=== PATIENT | female | born 1970 | race Caucasian/White ===

== ENCOUNTER 2019-11-20 08:37 | Emergency (ER) | payer OTHER ==
[2019-11-20] MEDS ORDERED: HYDROcodone/ACETAMINOPHEN 5-325 MG TAB PO ONE (10:29)
--- NOTE | 2019-11-20 10:31 | Emergency Department Report ---
HPI - General Chief Complaint: Fall Time Seen by Provider: 11/20/19 10:23 - HPI HPI: Room 19 The patient is a 49-year-old female present with a chief complaint of headache after fall. The patient states this morning at 06: 00 she slipped in the shower falling striking the right occipital region of her head. Patient denies loss of consciousness but states she felt lightheaded and continues to have a headache which she gives a score of 8/10. Patient denies nausea or vomiting. ED Past Medical Hx - Past Medical History Previous Medical History?: No - Surgical History Past Surgical History?: Yes Additional Surgical History: fibroid polyps removed - Family History Family history: no significant - Social History Smoking Status: Never Smoker Substance Use Type: None (Denies illicit drug use) - Medications Home Medications: Home Medications Medication Instructions Recorded Confirmed Last Taken Type HYDROcodone/APAP 5-325 [[place] 1 - 2 each PO Q6HR PRN #5 tablet 11/20/19 Unknown Rx 5/325] Ibuprofen [Motrin 800 MG tab] 800 mg PO Q8HR PRN #20 tablet 11/20/19 Unknown Rx ED Review of Systems ROS: Stated complaint: FELL IN TUB/HIT HEAD Other details as noted in HPI Constitutional: no symptoms reported Respiratory: no symptoms reported Endocrine: no symptoms reported Gastrointestinal: denies: nausea, vomiting Musculoskeletal: other (Neck pain) Neurological: headache Physical Exam - Physical Exam Vital Signs: Vital Signs 11/20/19 08:38 Temperature 98.3 F Pulse Rate 83 Respiratory 16 Rate Blood Pressure 110/79 O2 Sat by Pulse 100 Oximetry Physical Exam: GENERAL: The patient is well-developed well-nourished female sitting on stretcher not appearing to be in acute distress. [] HEENT: Normocephalic. Right occipital tenderness. No laceration seen. Extraocular motions are intact. Patient has moist mucous membranes. NECK: Upper cervical midline tenderness. No step-offs CHEST/LUNGS: Clear to auscultation. There is no respiratory distress noted. HEART/CARDIOVASCULAR: Regular. There is no tachycardia. There is no gallop rub or murmur. SKIN: There is no rash. There are no lacerations. There is no diaphoresis. NEURO: The patient is awake, alert, and oriented. The patient is cooperative. The patient has no focal neurologic deficits. The patient has normal speech. Cranial nerves II through XII grossly intact MUSCULOSKELETAL: There is tenderness to palpation of the upper cervical spine ED Course Vital Signs 11/20/19 08:38 Temperature 98.3 F Pulse Rate 83 Respiratory 16 Rate Blood Pressure 110/79 O2 Sat by Pulse 100 Oximetry ED Medical Decision Making - Radiology Data Radiology results: report reviewed (CT head, CT cervical), image reviewed (CT head, CT cervical spine) [facility] [address] [place] [address] Cat Scan Report Signed Patient: DELVIN SHEPPARD MR#: [id number] : 1970 Acct:[id number] Age/Sex: 49 / F ADM Date: 11/20/19 Loc: ED Attending Dr: Ordering Physician: SLADE TSAI MD Date of Service: 11/20/19 Procedure(s): CT head/brain wo con Accession Number(s): [id number] cc: SLADE TSAI MD CT HEAD WITHOUT CONTRAST INDICATION / CLINICAL INFORMATION: Right occipital headache after fall. TECHNIQUE: All CT scans at this location are performed using CT dose reduction for ALARA by means of automated exposure control. COMPARISON: Head CT 04/28/2016. FINDINGS: HEMORRHAGE: No evidence of intracranial hemorrhage or extra-axial fluid collection. EXTRA-AXIAL SPACES: Cortical sulci, sylvian fissures and basilar cisterns have an unremarkable appearance. VENTRICULAR SYSTEM: The ventricular system is of normal size and configuration. CEREBRAL PARENCHYMA: No areas of abnormal brain parenchymal attenuation are identified. There is no indication of recent infarction. MIDLINE SHIFT OR HERNIATION: There is no mass effect. CEREBELLUM / BRAINSTEM: Brainstem and cerebellum have an unremarkable appearance. MIDLINE STRUCTURES:No abnormalities of the pituitary gland or pineal region are identified. INTRACRANIAL VESSELS:No abnormalities are identified on this noncontrast head CT. ORBITS: visualized portions of the orbits have an unremarkable appearance. SOFT TISSUES of HEAD: No significant abnormality. CALVARIUM: Evaluation of bone windows reveals no abnormalities. PARANASAL SINUSES / MASTOID AIR CELLS: Paranasal sinuses are free from inflammatory mucosal disease. Mastoid air cells are normally pneumatized. ADDITIONAL FINDINGS: There is ossification of the falx in the anterior interhemispheric fissure. This is unchanged since prior study. IMPRESSION: 1. No acute intracranial abnormality. No significant interval change. Signer Name: Edwin Stanley MD Signed: 11/20/2019 12:40 PM Workstation Name: [id number] Transcribed By: Dictated By: Edwin Stanley MD Electronically Authenticated By: Edwin Stanley MD Signed Date/Time: 11/20/19 1240 DD/ 1236 TD/TT: [facility] [address] [place] [address] Cat Scan Report Signed Patient: DELVIN SHEPPARD MR#: [id number] : 1970 Acct:[id number] Age/Sex: 49 / F ADM Date: 11/20/19 Loc: ED Attending Dr: Ordering Physician: SLADE TSAI MD Date of Service: 11/20/19 Procedure(s): CT cervical spine wo con Accession Number(s): [id number] cc: SLADE TSAI MD CT cervical spine wo con INDICATION / CLINICAL INFORMATION: 49 years Female; Neck pain after fall. TECHNIQUE: Axial CT images of the cervical spine were obtained. Sagittal and coronal reformatted images were produced. All CT scans at this location are performed using CT dose reduction for ALARA by means of automated exposure control. COMPARISON: None available. FINDINGS: POST- SURGICAL CHANGES: None. ALIGNMENT: Normal cervical lordosis seen without significant scoliosis. VERTEBRAE: No signs of fracture. Vertebral bodies are grossly normal in height throughout. No significant facet joint disease or osseous foraminal narrowing appreciated. INTRAVERTEBRAL DISCS:Disc spaces are fairly well-maintained throughout without significant canal stenosis. PARASPINAL SOFT TISSUES: No significant abnormality. ADDITIONAL FINDINGS: None. IMPRESSION: 1. No signs of acute bony trauma to the cervical spine. Signer Name: Kaleb Ny MD, III Signed: 11/20/2019 1:35 PM Workstation Name: [id number] Transcribed By: HR Dictated By: Kaleb Ny MD Electronically Authenticated By: Kaleb Ny MD Signed Date/Time: 11/20/19 1335 DD/ 1333 TD/TT: - Differential Diagnosis Close head injury, ICH, cerebral contusion, cervical strain, cervical fract Critical care attestation.: If time is entered above; I have spent that time in minutes in the direct care of this critically ill patient, excluding procedure time. ED Disposition Clinical Impression: Closed head injury, Cervical strain, acute Disposition: DC-01 TO HOME OR SELFCARE Is pt being admited?: No Does the pt Need Aspirin: No Condition: Stable Instructions: Muscle Strain (ED), Minor Head Injury (ED) Additional Instructions: Return to the emergency department should you develop worsening symptoms, inability to tolerate food or liquids, high fever or any other concerns Prescriptions: Ibuprofen [Motrin 800 MG tab] 800 mg PO Q8HR PRN #20 tablet PRN Reason: Pain, Moderate (4-6) HYDROcodone/APAP 5-325 [[place] 5/325] 1 - 2 each PO Q6HR PRN #5 tablet PRN Reason: Pain Referrals: PRIMARY CARE, [Primary Care Provider] - 3-5 Days Time of Disposition: 13:55
[2019-11-20 11:43] VITALS: BP 103/76
--- NOTE | 2019-11-20 12:44 | Cat Scan Report ---
CT HEAD WITHOUT CONTRAST INDICATION / CLINICAL INFORMATION: Right occipital headache after fall. TECHNIQUE: All CT scans at this location are performed using CT dose reduction for ALARA by means of automated e xposure control. COMPARISON: Head CT 04/28/2016. FINDINGS: HEMORRHAGE: No evidence of intracranial hemorrhage or extra-axial fluid collection. EXTRA-AXIAL SPACES: Cortical sulci, sylvian fissures and basilar cisterns have an unremarkable appear ance. VENTRICULAR SYSTEM: The ventricular system is of normal size and configuration. CEREBRAL PARENCHYMA: No areas of abnormal brain parenchymal attenuation are identified. There is no i ndication of recent infarction. MIDLINE SHIFT OR HERNIATION: There is no mass effect. CEREBELLUM / BRAINSTEM: Brainstem and cerebellum have an unremarkable appearance. MIDLINE STRUCTURES:No abnormalities of the pituitary gland or pineal region are identified. INTRACRANIAL VESSELS:No abnormalities are identified on this noncontrast head CT. ORBITS: visualized portions of the orbits have an unremarkable appearance. SOFT TISSUES of HEAD: No significant abnormality. CALVARIUM: Evaluation of bone windows reveals no abnormalities. PARANASAL SINUSES / MASTOID AIR CELLS: Paranasal sinuses are free from inflammatory mucosal disease. Mastoid air cells are normally pneumatized. ADDITIONAL FINDINGS: There is ossification of the falx in the anterior interhemispheric fissure. This is unchanged since prior study. IMPRESSION: 1. No acute intracranial abnormality. No significant interval change. Signer Name: Edwin Stanley MD Signed: 11/20/2019 12:40 PM Workstation Name: [id number]
--- NOTE | 2019-11-20 13:39 | Cat Scan Report ---
CT cervical spine wo con INDICATION / CLINICAL INFORMATION: 49 years Female; Neck pain after fall. TECHNIQUE: Axial CT images of the cervical spine were obtained. Sagittal and coronal reformatted images were pr oduced. All CT scans at this location are performed using CT dose reduction for ALARA by means of aut omated exposure control. COMPARISON: None available. FINDINGS: POST-SURGICAL CHANGES: None. ALIGNMENT: Normal cervical lordosis seen without significant scoliosis. VERTEBRAE: No signs of fracture. Vertebral bodies are grossly normal in height throughout. No signif icant facet joint disease or osseous foraminal narrowing appreciated. INTRAVERTEBRAL DISCS:Disc spaces are fairly well-maintained throughout without significant canal sten osis. PARASPINAL SOFT TISSUES: No significant abnormality. ADDITIONAL FINDINGS: None. IMPRESSION: 1. No signs of acute bony trauma to the cervical spine. Signer Name: Kaleb Ny MD, III Signed: 11/20/2019 1:35 PM Workstation Name: [id number]
== END 2019-11-20 14:09 | disposition home or self-care (01) ==
LOC: ED 08:37
DX: S09.90XA Unspecified injury of head, initial encounter (principal); S16.1XXA Strain of muscle, fascia and tendon at neck level, initial encounter; Z98.890 Other specified postprocedural states; Z79.1 Long term (current) use of non-steroidal anti-inflammatories (NSAID); Z79.899 Other long term (current) drug therapy; W18.2XXA Fall in (into) shower or empty bathtub, initial encounter; Y93.89 Activity, other specified; Y92.89 Other specified places as the place of occurrence of the external cause; Y99.8 Other external cause status
CPT/HCPCS: 70450; 72125

== ENCOUNTER 2020-03-22 12:24 | Emergency (ER) | payer OTHER ==
[2020-03-22 12:42] VITALS: BP 128/81
--- NOTE | 2020-03-22 13:43 | Emergency Department Report ---
ED ENT HPI - General Chief complaint: Earache Stated complaint: THROAT AND EAR PAIN Time Seen by Provider: 03/22/20 13:02 Source: patient Mode of arrival: Ambulatory Limitations: No Limitations - History of Present Illness Initial comments: 49 yr old female with no significant pmhx presents to ED c/o Sore throat and ear pain. Patient states she has had sore throat off an on since january. She states she treated herself at home. She states pain got better but returned again about 1 week ago. She reports associated bilateral ear pain x 1 week and productive cough with blood tinged sputum. She denies any fever, chills, sob, wheezing, chest pain or any other symptoms. She denies tobacco use. MD complaint: sore throat, ear pain -: week(s) - Related Data Previous Rx's Medication Instructions Recorded Last Taken Type HYDROcodone/APAP 5-325 [[place] 1 - 2 each PO Q6HR PRN #5 tablet 11/20/19 Unknown Rx 5/325] Ibuprofen [Motrin 800 MG tab] 800 mg PO Q8HR PRN #20 tablet 11/20/19 Unknown Rx Amoxicillin [Trimox CAP] 500 mg PO Q8H #30 capsule 03/22/20 Unknown Rx Fexofenadine HCl [Paulien Allergy] 60 mg PO BID #20 tablet 03/22/20 Unknown Rx methylPREDNISolone [Medrol 4MG 4 mg PO DAILY #1 tab.ds.pk 03/22/20 Unknown Rx DOSEPAK (21 tabs)] Allergies Allergy/AdvReac Type Severity Reaction Status Date / Time cat dander Allergy Swelling Verified 03/22/20 12:42 ED Dental HPI - General Chief complaint: Earache Stated complaint: THROAT AND EAR PAIN Time Seen by Provider: 03/22/20 13:02 Source: patient Mode of arrival: Ambulatory Limitations: No Limitations - Related Data Previous Rx's Medication Instructions Recorded Last Taken Type HYDROcodone/APAP 5-325 [[place] 1 - 2 each PO Q6HR PRN #5 tablet 11/20/19 Unknown Rx 5/325] Ibuprofen [Motrin 800 MG tab] 800 mg PO Q8HR PRN #20 tablet 11/20/19 Unknown Rx Amoxicillin [Trimox CAP] 500 mg PO Q8H #30 capsule 03/22/20 Unknown Rx Fexofenadine HCl [Pauline Allergy] 60 mg PO BID #20 tablet 03/22/20 Unknown Rx methylPREDNISolone [Medrol 4MG 4 mg PO DAILY #1 tab.ds.pk 03/22/20 Unknown Rx DOSEPAK (21 tabs)] Allergies Allergy/AdvReac Type Severity Reaction Status Date / Time cat dander Allergy Swelling Verified 03/22/20 12:42 ED Review of Systems ROS: Stated complaint: THROAT AND EAR PAIN Other details as noted in HPI Comment: All other systems reviewed and negative ENT: ear pain, throat pain Respiratory: cough. denies: orthopnea, shortness of breath, SOB with exertion, SOB at rest, stridor, wheezing Musculoskeletal: denies: back pain, joint swelling, arthralgia Skin: denies: rash, lesions Neurological: denies: headache, weakness, paresthesias Psychiatric: denies: anxiety, depression Hematological/Lymphatic: denies: easy bleeding, easy bruising ED Past Medical Hx - Past Medical History Previous Medical History?: Yes Hx Asthma: Yes (childhood) - Surgical History Past Surgical History?: Yes Additional Surgical History: fibroid polyps removed - Social History Smoking Status: Never Smoker Substance Use Type: None (Denies illicit drug use) - Medications Home Medications: Home Medications Medication Instructions Recorded Confirmed Last Taken Type HYDROcodone/APAP 5-325 [[place] 1 - 2 each PO Q6HR PRN #5 tablet 11/20/19 Unknown Rx 5/325] Ibuprofen [Motrin 800 MG tab] 800 mg PO Q8HR PRN #20 tablet 11/20/19 Unknown Rx Amoxicillin [Trimox CAP] 500 mg PO Q8H #30 capsule 03/22/20 Unknown Rx Fexofenadine HCl [Pauline Allergy] 60 mg PO BID #20 tablet 03/22/20 Unknown Rx methylPREDNISolone [Medrol 4MG 4 mg PO DAILY #1 tab.ds.pk 03/22/20 Unknown Rx DOSEPAK (21 tabs)] ED Physical Exam - General Limitations: No Limitations General appearance: alert, in no apparent distress - Head Head exam: Present: atraumatic, normocephalic, normal inspection - Eye Eye exam: Present: normal appearance, PERRL, EOMI Pupils: Present: normal accommodation - ENT ENT exam: Present: normal exam, mucous membranes moist - Expanded ENT Exam Expanded TM/Canal exam: Erythema: Right TM (mild ), Effusion: Right TM, Left TM Mouth exam: Present: normal external inspection. Absent: drooling, trismus Throat exam: Positive: tonsillar erythema, tonsillomegaly. Negative: tonsillar exudate, R peritonsillar mass, L peritonsillar mass - Neck Neck exam: Present: normal inspection, full ROM, lymphadenopathy (anterior cervical ) - Respiratory Respiratory exam: Present: normal lung sounds bilaterally. Absent: respiratory distress - Cardiovascular Cardiovascular Exam: Present: normal rhythm - Neurological Exam Neurological exam: Present: alert, oriented X3, CN II-XII intact, normal gait - Psychiatric Psychiatric exam: Present: normal affect, normal mood - Skin Skin exam: Present: intact ED Course Vital Signs 03/22/20 12:40 Temperature 97.9 F Pulse Rate 73 Respiratory 16 Rate Blood Pressure 128/81 [Right] O2 Sat by Pulse 100 Oximetry ED Medical Decision Making - Medical Decision Making The patient is resting comfortably and is well-appearing and in no acute distress. There is no respiratory distress, no stridor and the mental status is normal. The neurological exam is normal, there is no significant signs of dehydration, and the patient is able to tolerate p.o. fluids. The history, exam, and the patient current condition does not suggest an infectious process such as meningitis, retropharyngeal abscess, epiglottitis, peritonsillar abscess, Maria Esther's angina, mastoiditis, orbital cellulitis, periorbital cellulitis, severe meningitis, malignant otitis externa, sepsis or any significant pathology warranting further testing, continued ED treatment, admission, consultation or any other evaluation at this time. The vital signs have been stable. The patient condition is stable and appropriate for discharge. Critical care attestation.: If time is entered above; I have spent that time in minutes in the direct care of this critically ill patient, excluding procedure time. ED Disposition Clinical Impression: Pharyngitis, Serous otitis media Disposition: TO HOME OR SELFCARE Is pt being admited?: No Does the pt Need Aspirin: No Condition: Stable Instructions: Otitis Media, Adult, [id number], Pharyngitis, [id number] Additional Instructions: Take medications as prescribed. You can take tylenol or motrin for pain. Follow up with ENT if not better. Return to ED if symptoms changes or worsens. Prescriptions: Fexofenadine HCl [Pauline Allergy] 60 mg PO BID #20 tablet methylPREDNISolone [Medrol 4MG DOSEPAK (21 tabs)] 4 mg PO DAILY #1 tab.ds.pk Amoxicillin [Trimox CAP] 500 mg PO Q8H #30 capsule Referrals: CARMEN MONTEZ MD [Staff Physician] - 3-5 Days Forms: Work/School Release Form(ED) Time of Disposition: 13:43
== END 2020-03-22 15:06 | disposition home or self-care (01) ==
LOC: ED 12:24
DX: J02.9 Acute pharyngitis, unspecified (principal); H65.90 Unspecified nonsuppurative otitis media, unspecified ear; J45.909 Unspecified asthma, uncomplicated; Z98.890 Other specified postprocedural states; Z79.1 Long term (current) use of non-steroidal anti-inflammatories (NSAID); Z79.2 Long term (current) use of antibiotics; Z79.899 Other long term (current) drug therapy; Z88.8 Allergy status to other drugs, medicaments and biological substances
CPT/HCPCS: 99282

== ENCOUNTER 2020-03-26 11:50 | Emergency (ER) | payer OTHER ==
[2020-03-26 11:55] VITALS: BP 132/80
--- NOTE | 2020-03-26 12:06 | Emergency Department Report ---
ED Female HPI - General Chief complaint: Urogenital-Female Stated complaint: YEAST INFECTION Time Seen by Provider: 03/26/20 11:57 Source: patient Mode of arrival: Ambulatory Limitations: No Limitations - History of Present Illness Initial comments: Chief complaint: "I have a yeast infection." HPI: This is a 49-year-old female with history of uterine fibroids and childhood asthma who presents with yeast infection. Patient has inflammation of her labia. She has white pasty discharge with wiping. She has itching in her genital region. She last had yeast infection in her teenage years. She attributed her yeast infection at that time to her undergarment choices. Patient is currently taking amoxicillin for upper respiratory infection. Patient denies abdominal pain or fever. MD Complaint: vaginal discharge -: Gradual, days(s) (2) Location: labia Severity: mild Quality: other (Labial irritation) Consistency: constant Improves with: none Worsens with: none Are you Now?: No Associated Symptoms: vaginal discharge (White pasty "yeasty" discharge) - Related Data Previous Rx's Medication Instructions Recorded Last Taken Type HYDROcodone/APAP 5-325 [[place] 1 - 2 each PO Q6HR PRN #5 tablet 11/20/19 Unknown Rx 5/325] Ibuprofen [Motrin 800 MG tab] 800 mg PO Q8HR PRN #20 tablet 11/20/19 Unknown Rx Amoxicillin [Trimox CAP] 500 mg PO Q8H #30 capsule 03/22/20 Unknown Rx Fexofenadine HCl [Pauline Allergy] 60 mg PO BID #20 tablet 03/22/20 Unknown Rx methylPREDNISolone [Medrol 4MG 4 mg PO DAILY #1 tab.ds.pk 03/22/20 Unknown Rx DOSEPAK (21 tabs)] Fluconazole [Diflucan TAB] 200 mg PO ONCE #1 tablet 03/26/20 Unknown Rx Allergies Allergy/AdvReac Type Severity Reaction Status Date / Time cat dander Allergy Swelling Verified 03/22/20 12:42 ED Review of Systems ROS: Stated complaint: YEAST INFECTION Other details as noted in HPI Constitutional: denies: fever, malaise Respiratory: denies: cough, shortness of breath Gastrointestinal: denies: abdominal pain, nausea, vomiting, diarrhea Skin: denies: lesions ED Past Medical Hx - Past Medical History Previous Medical History?: Yes Hx Asthma: Yes (childhood) - Surgical History Past Surgical History?: Yes Additional Surgical History: fibroid polyps removed - Social History Smoking Status: Never Smoker Substance Use Type: None (Denies illicit drug use) - Medications Home Medications: Home Medications Medication Instructions Recorded Confirmed Last Taken Type HYDROcodone/APAP 5-325 [[place] 1 - 2 each PO Q6HR PRN #5 tablet 11/20/19 Unknown Rx 5/325] Ibuprofen [Motrin 800 MG tab] 800 mg PO Q8HR PRN #20 tablet 11/20/19 Unknown Rx Amoxicillin [Trimox CAP] 500 mg PO Q8H #30 capsule 03/22/20 Unknown Rx Fexofenadine HCl [Pauline Allergy] 60 mg PO BID #20 tablet 03/22/20 Unknown Rx methylPREDNISolone [Medrol 4MG 4 mg PO DAILY #1 tab.ds.pk 03/22/20 Unknown Rx DOSEPAK (21 tabs)] Fluconazole [Diflucan TAB] 200 mg PO ONCE #1 tablet 03/26/20 Unknown Rx ED Physical Exam - General Limitations: No Limitations General appearance: alert, in no apparent distress, other (Patient appears well jovial no acute distress she is comfortable) - Head Head exam: Present: atraumatic, normocephalic - Eye Eye exam: Present: normal appearance - ENT ENT exam: Present: mucous membranes moist - Neck Neck exam: Present: normal inspection - Respiratory Respiratory exam: Present: normal lung sounds bilaterally. Absent: respiratory distress, wheezes, rales, rhonchi - Cardiovascular Cardiovascular Exam: Present: regular rate, normal rhythm. Absent: systolic murmur, diastolic murmur, rubs, gallop - GI/Abdominal GI/Abdominal exam: Present: soft, normal bowel sounds. Absent: distended, tenderness, guarding - Extremities Exam Extremities exam: Present: normal inspection - Back Exam Back exam: Present: normal inspection - Neurological Exam Neurological exam: Present: alert, oriented X3 - Psychiatric Psychiatric exam: Present: normal affect, normal mood - Skin Skin exam: Present: warm, dry, intact, normal color. Absent: rash ED Course Vital Signs 03/26/20 11:55 Temperature 97.3 F L Pulse Rate 85 Respiratory 16 Rate Blood Pressure 132/80 [Right] O2 Sat by Pulse 99 Oximetry ED Medical Decision Making - Medical Decision Making Candidal vaginitis: Prescription for fluconazole provided. I recommended [id number] 7-day course of Monistat. Critical care attestation.: If time is entered above; I have spent that time in minutes in the direct care of this critically ill patient, excluding procedure time. ED Disposition Clinical Impression: Candidal vaginitis Disposition: DC-01 TO HOME OR SELFCARE Is pt being admited?: No Does the pt Need Aspirin: No Condition: Stable Instructions: Vaginal Yeast Infection, Adult Prescriptions: Fluconazole [Diflucan TAB] 200 mg PO ONCE #1 tablet
== END 2020-03-26 12:48 | disposition home or self-care (01) ==
LOC: ED 11:50
DX: B37.9 Candidiasis, unspecified (principal); J45.909 Unspecified asthma, uncomplicated; Z98.890 Other specified postprocedural states; Z79.1 Long term (current) use of non-steroidal anti-inflammatories (NSAID); Z79.2 Long term (current) use of antibiotics; Z79.899 Other long term (current) drug therapy; Z88.8 Allergy status to other drugs, medicaments and biological substances
CPT/HCPCS: 99282

== ENCOUNTER 2020-03-28 09:33 | Emergency (ER) | payer OTHER ==
[2020-03-28 09:37] VITALS: BP 132/55
--- NOTE | 2020-03-28 09:59 | Emergency Department Report ---
Chief Complaint: Urogenital-Female Stated Complaint: poss std or yeast infection - HPI History of Present Illness: 49-year-old -[place] female presents to the emergency room reporting that she is having vaginal irritation from a yeast infection. Patient states that she was placed on all amoxicillin on 22 March and had to come back on the fifth because it caused her to have a vaginal yeast infection. At that time patient was prescribed Diflucan recommended cziy-pbp-nzcqcny Monistat for 7 days. Patient states that the yeast infection has improved but the outer labia is still irritated swollen and tender. Patient denies any fever chills no longer has a vaginal discharge throat and ears feel better. - Exam Vital Signs: Vital Signs 03/28/20 09:36 Temperature 98.0 F Pulse Rate 81 Respiratory 18 Rate Blood Pressure 132/55 O2 Sat by Pulse 99 Oximetry Physical Exam: Patient is alert and oriented x3 no acute distress nontoxic in appearance. Patient has nonlabored breathing no accessory muscles use Ambulatory without difficulties MSE screening note: Focused history and physical exam performed. Due to findings the following was ordered: 49-year-old -[place] female presents to the emergency room reporting that she is having vaginal irritation from a yeast infection. Patient states that she was placed on all amoxicillin on 22 March and had to come back on the fifth because it caused her to have a vaginal yeast infection. At that time patient was prescribed Diflucan recommended iewj-tmf-jdetjdo Monistat for 7 days. Patient states that the yeast infection has improved but the outer labia is still irritated swollen and tender. Patient denies any fever chills no longer has a vaginal discharge throat and ears feel better. Discussed with patient to start a probiotic recommend mhsg-vib-tiysujh Vagisil since this benzocaine and use some of the suppository to her outer labia. Discussed patient to use a cool rag avoid dark type clothes. Follow-up with her RADIOLOGY TECHNOLOGIST. [place] [facility] [place]ression: Candidal vaginitis Disposition: MED SCREENING EXAM-LEFT Is pt being admited?: No Does the pt Need Aspirin: No Condition: Stable Instructions: Vaginitis, Epix-lh-Pfge Additional Instructions: Recommend getting gguz-itp-ypdhzki Vagisil cream to put to the labia of the vaginal area. You can use a little bit of the suppositories to melt in your fingers and coat the labia area. Also recommend to incorporate a probiotic to your daily regimen as this will help with your pH balance as well as increase your immune system. Follow-up with your RADIOLOGY TECHNOLOGIST. 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
== END 2020-03-28 10:04 | disposition left against medical advice (07) ==
LOC: ED 09:33
DX: B37.3 Candidiasis of vulva and vagina (principal); Z53.21 Procedure and treatment not carried out due to patient leaving prior to being seen by health care provider

== ENCOUNTER 2020-11-16 16:30 | Emergency (ER) | payer SELFPAY ==
--- NOTE | 2020-11-16 17:14 | Emergency Department Report ---
ED General Adult HPI - General Chief complaint: Dyspnea/Respdistress Stated complaint: SHORTNESS OF BREATH/RUNNY NOSE/SORE THROAT Time Seen by Provider: 11/16/20 17:03 Source: patient Mode of arrival: Ambulatory Limitations: No Limitations - History of Present Illness Initial comments: 50-year-old female patient with history of asthma presents to the emergency department with complaints of fatigue, nasal congestion, sneezing, productive cough, sore throat, and shortness of breath starting last night. Patient states she was sent home from work last night due to her symptoms. Patient received 1 of 2 COVID-19 vaccinations. No known sick contacts. No current steroid or antibiotic use. No recent travel. No medications prior to arrival. Denies f ever, chills, chest pain, wheezing, palpitations, vomiting, rash, headache. Denies all other complaints at this time. - Related Data Previous Rx's Medication Instructions Recorded Last Taken Type HYDROcodone/APAP 5-325 [[place] 1 - 2 each PO Q6HR PRN #5 tablet 11/20/19 Unknown Rx 5/325] Ibuprofen [Motrin 800 MG tab] 800 mg PO Q8HR PRN #20 tablet 11/20/19 Unknown Rx Amoxicillin [Trimox CAP] 500 mg PO Q8H #30 capsule 03/22/20 Unknown Rx Fexofenadine HCl [Pauline Allergy] 60 mg PO BID #20 tablet 03/22/20 Unknown Rx methylPREDNISolone [Medrol 4MG 4 mg PO DAILY #1 tab.ds.pk 03/22/20 Unknown Rx DOSEPAK (21 tabs)] Fluconazole [Diflucan TAB] 200 mg PO ONCE #1 tablet 03/26/20 Unknown Rx Benzonatate [Tessalon Perles] 200 mg PO Q8HR #20 capsule 11/16/20 Unknown Rx Allergies Allergy/AdvReac Type Severity Reaction Status Date / Time cat dander Allergy Swelling Verified 03/22/20 12:42 ED Review of Systems ROS: Stated complaint: SHORTNESS OF BREATH/RUNNY NOSE/SORE THROAT Other details as noted in HPI Other: GENERAL: Positive for fatigue. ENT: Positive for congestion, sneezing, and sore throat. CARDIOVASCULAR: Negative for chest pain, palpitations, lower extremity swelling. PULMONARY: Positive for cough and shortness of breath. GASTROINTESTINAL: Negative for abdominal pain, nausea, vomiting, diarrhea, constipation. MUSCULOSKELETAL: Negative for joint pain, joint swelling, myalgias, back pain, neck pain. NEUROLOGICAL: Negative for headache, seizure, syncope, paresthesias, weakness. INTEGUMENTARY: Negative for erythema, rash, diaphoresis, laceration, ecchymosis. HEMATOLOGICAL: Negative for hemoptysis, hematemesis, hematochezia, hematuria. PSYCHIATRIC: Negative for hallucinations, suicidal ideation, homicidal ideation, anxiety, depression. ED Past Medical Hx - Past Medical History Previous Medical History?: Yes Hx Asthma: Yes (childhood) - Surgical History Past Surgical History?: Yes Additional Surgical History: fibroid polyps removed - Social History Smoking Status: Never Smoker Substance Use Type: None (Denies illicit drug use) - Medications Home Medications: Home Medications Medication Instructions Recorded Confirmed Last Taken Type HYDROcodone/APAP 5-325 [[place] 1 - 2 each PO Q6HR PRN #5 tablet 11/20/19 Unknown Rx 5/325] Ibuprofen [Motrin 800 MG tab] 800 mg PO Q8HR PRN #20 tablet 11/20/19 Unknown Rx Amoxicillin [Trimox CAP] 500 mg PO Q8H #30 capsule 03/22/20 Unknown Rx Fexofenadine HCl [Pauline Allergy] 60 mg PO BID #20 tablet 03/22/20 Unknown Rx methylPREDNISolone [Medrol 4MG 4 mg PO DAILY #1 tab.ds.pk 03/22/20 Unknown Rx DOSEPAK (21 tabs)] Fluconazole [Diflucan TAB] 200 mg PO ONCE #1 tablet 03/26/20 Unknown Rx Benzonatate [Tessalon Perles] 200 mg PO Q8HR #20 capsule 11/16/20 Unknown Rx ED Physical Exam - General Limitations: No Limitations - Other Other exam information: General: Awake and alert. No acute distress. Head: Atraumatic, normocephalic. Eyes: EOMI. Pupils are equal and round. Normal sclera and conjunctiva. ENT: Oral mucosa is moist. Normal pharyngeal exam. Neck: Supple. No lymphadenopathy. Pulmonary: No respiratory distress. Clear to auscultation bilaterally. Cardiac: Regular rate and rhythm. Pulses are palpable and equal bilaterally. No lower extremity cyanosis or edema. Skin: Warm and dry. No rashes. Abdomen: Soft, non-tender, non-protuberant. No guarding, rigidity, or rebound. Bowel sounds are normal. No organomegaly or masses noted. Back: Normal alignment. No CVA tenderness. Extremities: Symmetrical. Full range of motion intact. Neurological: Alert and oriented, appropriately interactive, no focal deficits. Psych: Cooperative. Appropriate mood and affect. Speech is evenly metered. Thoughts are logically construed. ED Course Vital Signs 11/16/20 16:36 Temperature 98.6 F Pulse Rate 81 Respiratory 16 Rate Blood Pressure 122/67 O2 Sat by Pulse 99 Oximetry ED Medical Decision Making - Medical Decision Making Differential diagnosis including but not limited to: pneumonia, asthma exacerbation, influenza, pharyngitis, allergic rhinitis, pertussis, viral upper respiratory infection On reevaluation, patient remains stable. No hypoxia, no respiratory distress. Chest x-ray is negative. Rapid flu test is negative. COVID-19 testing is currently unavailable at this facility. No clinical indication for further diagnostic work-up on an emergent basis at this time. Patient will be discharged home with appropriate symptomatic treatment and referred to primary care provider for close outpatient follow-up. Upon patient's request, a list of local COVID-19 testing sites was provided. Patient expressed understanding and is agreeable to plan of care. Disease transmission precautions discussed. Strict return precautions provided. Repeat exam is unremarkable and benign. History, exam, diagnostic testing, and current condition do not suggest worrisome pathology to warrant further testing, continued ED treatment, admission, or surgical evaluation at this point. Given the low probability of a significant medical illness, it would be more likely to result in harm than benefit to perform further testing at this stage. Discussed findings, presumptive diagnosis, need for follow-up and specific signs/symptoms that should prompt immediate return to the emergency department. Instructions were explained in detail to the patient in addition to giving written discharge information. Patient expressed understanding and was given the opportunity to ask questions, all of which were satisfactorily answered prior to discharge home. Critical care attestation.: If time is entered above; I have spent that time in minutes in the direct care of this critically ill patient, excluding procedure time. ED Disposition Clinical Impression: Viral upper respiratory tract infection with cough Disposition: HOME / SELF CARE / HOMELESS Is pt being admited?: No Does the pt Need Aspirin: No Condition: Stable Instructions: Viral Respiratory Infection, Ddcd-Au-Rfum Additional Instructions: Take Tylenol every 4 hours and Motrin every 8 hours as needed for pain/fever. Take Tessalon as directed for cough. Honey is an excellent natural cough suppressant. Use any mbvi-xxx-fhmqfye cough/cold remedies as directed for symptomatic relief. Rest. Drink plenty of fluids. Wash hands frequently to prevent disease transmission. Do not share food or drinks with others. Follow-up with primary care provider this week. Call tomorrow to schedule appointment. See referral information below Return to the emergency department immediately for new or worsening symptoms. Prescriptions: Benzonatate [Tessalon Perles] 200 mg PO Q8HR #20 capsule Referrals: DANUTA OLIVARES MD [Staff Physician] - 3-5 Days [facility] [Provider Group] - 3-5 Days Forms: Work/School Release Form(ED) Time of Disposition: 19:37
--- NOTE | 2020-11-16 17:57 | XRay Report ---
CHEST PA AND LATERAL VIEWS INDICATION: productive cough/SOB. COMPARISON: None. FINDINGS: Support devices: None. Heart: Within normal limits. Lungs/Pleura: No acute pulmonary or pleural findings. IMPRESSION: 1. No acute findings. Signer Name: Servando Garcia MD Signed: 11/16/2020 5:53 PM Workstation Name: [id number]
[2020-11-16 20:24] VITALS: BP 121/73
--- NOTE | 2020-11-22 14:13 | Electrocardiograph Report ---
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
== END 2020-11-16 20:24 | disposition home or self-care (01) ==
LOC: ED 16:30
DX: J06.9 Acute upper respiratory infection, unspecified (principal); J45.909 Unspecified asthma, uncomplicated
CPT/HCPCS: 71046; 87400; 93005; 99283

== ENCOUNTER 2020-12-10 14:15 | Emergency (ER) | payer SELFPAY ==
[2020-12-10] MEDS ORDERED: IBUPROFEN 600 MG TAB PO ONE (15:51)
--- NOTE | 2020-12-10 15:51 | Emergency Department Report ---
ED ENT HPI - General Chief complaint: Sore Throat Stated complaint: SORE THROAT Time Seen by Provider: 12/10/20 15:05 Source: patient Mode of arrival: Ambulatory Limitations: No Limitations - History of Present Illness Initial comments: 50-year-old female presents to the ER today with complaints of sore throat. She states her symptoms started about 2 days ago. She reports pain with swallowing. She also reports associated cough, rhinorrhea nasal congestion. She denies any fever or chills. She denies any ill contacts. She denies any trismus or d rooling, chest pain, shortness of breath, wheezing or any additional symptoms at this time. She states that she has gotten Covid 19 Pfizer vaccine and also a flu vaccine. complaint: sore throat -: days(s) - Related Data Previous Rx's Medication Instructions Recorded Last Taken Type Loratadine [Claritin] 10 mg PO DAILY #30 tablet 12/10/20 Unknown Rx dexAMETHasone [Decadron] 4 mg PO Q12H #10 tablet 12/10/20 Unknown Rx Allergies Allergy/AdvReac Type Severity Reaction Status Date / Time cat dander Allergy Swelling Verified 12/10/20 14:20 ED Dental HPI - General Chief complaint: Sore Throat Stated complaint: SORE THROAT Time Seen by Provider: 12/10/20 15:05 Source: patient Mode of arrival: Ambulatory Limitations: No Limitations - Related Data Previous Rx's Medication Instructions Recorded Last Taken Type Loratadine [Claritin] 10 mg PO DAILY #30 tablet 12/10/20 Unknown Rx dexAMETHasone [Decadron] 4 mg PO Q12H #10 tablet 12/10/20 Unknown Rx Allergies Allergy/AdvReac Type Severity Reaction Status Date / Time cat dander Allergy Swelling Verified 12/10/20 14:20 ED Review of Systems ROS: Stated complaint: SORE THROAT Other details as noted in HPI Comment: All other systems reviewed and negative Constitutional: denies: chills, fever ENT: throat pain, congestion, other (Rhinorrhea) Respiratory: denies: cough, shortness of breath, wheezing Cardiovascular: denies: chest pain, palpitations, dyspnea on exertion, edema, syncope, paroxysmal nocturnal dyspnea Gastrointestinal: denies: abdominal pain, nausea, diarrhea Genitourinary: denies: urgency, dysuria, frequency, hematuria, discharge, abnormal menses, dyspareunia Musculoskeletal: denies: back pain, joint swelling, arthralgia Skin: denies: rash, lesions, change in color, change in hair/nails, pruritus Neurological: denies: headache, weakness, numbness, paresthesias, confusion, abnormal gait, vertigo Psychiatric: denies: anxiety, depression, auditory hallucinations, visual hallucinations, homicidal thoughts, suicidal thoughts Hematological/Lymphatic: denies: easy bleeding, easy bruising ED Past Medical Hx - Past Medical History Hx Asthma: Yes (childhood) - Surgical History Additional Surgical History: fibroid polyps removed - Social History Smoking Status: Never Smoker Substance Use Type: None (Denies illicit drug use) - Medications Home Medications: Home Medications Medication Instructions Recorded Confirmed Last Taken Type Loratadine [Claritin] 10 mg PO DAILY #30 tablet 12/10/20 Unknown Rx dexAMETHasone [Decadron] 4 mg PO Q12H #10 tablet 12/10/20 Unknown Rx ED Physical Exam - General Limitations: No Limitations General appearance: alert, in no apparent distress - Head Head exam: Present: atraumatic, normocephalic, normal inspection - Eye Eye exam: Present: normal appearance, PERRL, EOMI Pupils: Present: normal accommodation - ENT ENT exam: Present: mucous membranes moist, TM's normal bilaterally - Expanded ENT Exam Expanded Mouth exam: Present: normal external inspection. Absent: drooling, trismus, muffled voice, tongue normal, tongue elevation, laceration Throat exam: Positive: tonsillar erythema. Negative: tonsillomegaly, tonsillar exudate, R peritonsillar mass, L peritonsillar mass - Neck Neck exam: Present: normal inspection, full ROM. Absent: tenderness, meningismus - Respiratory Respiratory exam: Present: normal lung sounds bilaterally. Absent: respiratory distress, wheezes, rales, rhonchi - Cardiovascular Cardiovascular Exam: Present: regular rate, normal rhythm, normal heart sounds - Neurological Exam Neurological exam: Present: alert, oriented X3, CN II-XII intact, normal gait - Psychiatric Psychiatric exam: Present: normal affect, normal mood - Skin Skin exam: Present: intact ED Course Vital Signs 12/10/20 14:19 Temperature 98.6 F Pulse Rate 107 H Respiratory 18 Rate Blood Pressure 128/71 O2 Sat by Pulse 96 Oximetry ED Medical Decision Making - Medical Decision Making Rapid strep is negative. Patient currently is resting comfortably, watching TV on her phone. She is not toxic or ill-appearing. She is not in any acute distress. She is tolerating her secretions well. She has no trismus or drooling. Airway appears to be intact. She is not any respiratory distress without any stridor. Chest is clear to auscultation. Her vital signs are stable. I suspect that patient symptoms are likely related to a viral illness at this time. Discussed strep test results, suspected diagnosis and treatment plan with patient. Recommend follow-up with her PCP. Patient expressed understanding and agree with plan. Patient was stable at time of discharge. Critical care attestation.: If time is entered above; I have spent that time in minutes in the direct care of this critically ill patient, excluding procedure time. ED Disposition Clinical Impression: Pharyngitis, URI (upper respiratory infection) Disposition: 01 HOME / SELF CARE / HOMELESS Is pt being admited?: No Does the pt Need Aspirin: No Condition: Stable Instructions: Upper Respiratory Infection, Adult, Clhd-sx-Upjz, Pharyngitis, Acgw-zd-Vand Additional Instructions: Recommend he take the Decadron as prescribed this can help with swelling and inflammation in the throat. Also recommend that you take the Zyrtec as prescribed and you can also get Robitussin or Mucinex from [id number]-pce-ucmlmzv to help with any cough. Recommend that you drink lots of fluids especially cold fluids as this will help soothe your throat. You can also use myzg-nmp-hcwjtot throat lozenges or throat sprays to help your sore throat. Follow-up closely with your PCP. Return to the ER if your symptoms changes or worsens in any way. Prescriptions: Loratadine [Claritin] 10 mg PO DAILY #30 tablet dexAMETHasone [Decadron] 4 mg PO Q12H #10 tablet Referrals: PRIMARY CARE, [Referring] - 3-5 Days Forms: Work/School Release Form(ED) Time of Disposition: 16:54
[2020-12-10 17:38] VITALS: BP 133/74
== END 2020-12-10 17:38 | disposition home or self-care (01) ==
LOC: ED 14:15
DX: J06.9 Acute upper respiratory infection, unspecified (principal); J02.9 Acute pharyngitis, unspecified
CPT/HCPCS: 87116; 87430; 99283

== ENCOUNTER 2020-12-13 14:49 | Emergency (ER) | payer SELFPAY ==
[2020-12-13 15:31] VITALS: BP 131/60
--- NOTE | 2020-12-13 16:28 | Emergency Department Report ---
- General Chief Complaint: Upper Respiratory Infection Stated Complaint: RESPIRATORY INFECTION Time Seen by Provider: 12/13/20 16:23 Source: patient Mode of arrival: Ambulatory Limitations: No Limitations - History of Present Illness Initial Comments: The patient was evaluated in the emergency department for symptoms described in the history of present illness. He/she was evaluated in the context of the global COVID-19 pandemic, which necessitated consideration that the patient might be at risk for infection with the virus that causes COVID-19. Institutional protocols and algorithms that pertain to the evaluation of patients at risk for COVID-19 are in a state of rapid change based on information released by regulatory bodies including the CDC and federal and state organizations. These policies and algorithms were followed during the patient's care in the emergency department. Please note that these policies, procedures and recommendations changed on a rapid basis. 50-year-old -[place] female presents to the emergency room for increased nasal congestion postnasal drip cough now with cloudy mucus. Patient was here last for the same complaint but reports is getting worse. Patient was discharged on prednisone and Claritin. Patient states she did not get the Claritin but is taken the prednisone. She denies any fever chills at this time. She states that she is fully vaccinated with the Pfizer vaccine and has received her flu vaccine. She still has a sore throat and cough. MD Complaint: cough, sore throat, rhinorrhea, nasal congestion Onset/Timin -: days(s) Severity: moderate Severity scale (0 -10): 4 Consistency: constant Improves With: nothing Worsens With: activity Associated Symptoms: rhinorrhea, nasal congestion, sore throat, cough. denies: nausea, vomiting, diarrhea Treatments Prior to Arrival: other (Prednisone) - Related Data Previous Rx's Medication Instructions Recorded Last Taken Type Loratadine [Claritin] 10 mg PO DAILY #30 tablet 12/10/20 Unknown Rx dexAMETHasone [Decadron] 4 mg PO Q12H #10 tablet 12/10/20 Unknown Rx Azithromycin [Zithromax Z-CHANNING] 250 mg PO DAILY #6 tab 12/13/20 Unknown Rx Cetirizine HCl [Zyrtec 10mg tab] 10 mg PO QDAY #14 tablet 12/13/20 Unknown Rx Allergies Allergy/AdvReac Type Severity Reaction Status Date / Time cat dander Allergy Swelling Verified 10/22/21 14:20 ED Review of Systems ROS: Stated complaint: RESPIRATORY INFECTION Other details as noted in HPI Comment: All other systems reviewed and negative ED Past Medical Hx - Past Medical History Previous Medical History?: Yes Hx Asthma: Yes (childhood) - Surgical History Past Surgical History?: Yes Additional Surgical History: fibroid polyps removed - Social History Smoking Status: Never Smoker Substance Use Type: None (Denies illicit drug use) - Medications Home Medications: Home Medications Medication Instructions Recorded Confirmed Last Taken Type Loratadine [Claritin] 10 mg PO DAILY #30 tablet 12/10/20 Unknown Rx dexAMETHasone [Decadron] 4 mg PO Q12H #10 tablet 12/10/20 Unknown Rx Azithromycin [Zithromax Z-CHANNING] 250 mg PO DAILY #6 tab 12/13/20 Unknown Rx Cetirizine HCl [Zyrtec 10mg tab] 10 mg PO QDAY #14 tablet 12/13/20 Unknown Rx ED Physical Exam - General Limitations: No Limitations General appearance: alert, in no apparent distress - Head Head exam: Present: atraumatic, normocephalic - Eye Eye exam: Present: normal appearance - ENT ENT exam: Present: mucous membranes moist - Neck Neck exam: Present: normal inspection - Respiratory Respiratory exam: Present: normal lung sounds bilaterally. Absent: respiratory distress - Cardiovascular Cardiovascular Exam: Present: regular rate, normal rhythm. Absent: systolic murmur, diastolic murmur, rubs, gallop - GI/Abdominal GI/Abdominal exam: Present: soft, normal bowel sounds - Extremities Exam Extremities exam: Present: normal inspection - Back Exam Back exam: Present: normal inspection - Neurological Exam Neurological exam: Present: alert, oriented X3, normal gait - Psychiatric Psychiatric exam: Present: normal affect, normal mood - Skin Skin exam: Present: warm, dry, intact, normal color. Absent: rash ED Course Vital Signs 12/13/20 15:27 Temperature 98.1 F Pulse Rate 75 Respiratory 16 Rate Blood Pressure 131/60 O2 Sat by Pulse 99 Oximetry ED Medical Decision Making - Medical Decision Making 50-year-old -[place] female presents to the emergency room for increased nasal congestion postnasal drip cough now with cloudy mucus. Patient was here last for the same complaint but reports is getting worse. Patient was discharged on prednisone and Claritin. Patient states she did not get the Claritin but is taken the prednisone. She denies any fever chills at this time. She states that she is fully vaccinated with the Pfizer vaccine and has received her flu vaccine. She still has a sore throat and cough. Critical care attestation.: If time is entered above; I have spent that time in minutes in the direct care of this critically ill patient, excluding procedure time. ED Disposition Clinical Impression: URI (upper respiratory infection), Pharyngitis Disposition: HOME / SELF CARE / HOMELESS Is pt being admited?: No Does the pt Need Aspirin: No Condition: Stable Instructions: Upper Respiratory Infection, Adult, Jkgx-xo-Hibb Additional Instructions: Please complete antibiotics as prescribed take Zyrtec as needed. Tylenol ibuprofen. Prescriptions: Azithromycin [Zithromax Z-CHANNING] 250 mg PO DAILY #6 tab Cetirizine HCl [Zyrtec 10mg tab] 10 mg PO QDAY #14 tablet Referrals: [facility] [Provider Group] - 3-5 Days Forms: Work/School Release Form(ED) Time of Disposition: 16:36
== END 2020-12-13 16:59 | disposition home or self-care (01) ==
LOC: ED 14:49
DX: J06.9 Acute upper respiratory infection, unspecified (principal); J02.9 Acute pharyngitis, unspecified; J45.909 Unspecified asthma, uncomplicated; Z98.890 Other specified postprocedural states; Z91.048 Other nonmedicinal substance allergy status
CPT/HCPCS: 99281

== ENCOUNTER 2021-01-21 12:00 | Emergency (ER) | payer SELFPAY ==
[2021-01-21 12:07] VITALS: BP 123/72
[2021-01-21] MEDS ORDERED: KETOROLAC 30 MG/1 ML INJ IM ONE (12:43)
--- NOTE | 2021-01-21 12:47 | Emergency Department Report ---
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 denies: numbness, difficulty walking, cough, difficulty urinating, incontinence, fever/chills - Related Data Previous Rx's Medication Instructions Recorded Last Taken Type Loratadine [Claritin] 10 mg PO DAILY #30 tablet 12/10/20 Unknown Rx dexAMETHasone [Decadron] 4 mg PO Q12H #10 tablet 12/10/20 Unknown Rx Azithromycin [Zithromax Z-CHANNING] 250 mg PO DAILY #6 tab 12/13/20 Unknown Rx Cetirizine HCl [Zyrtec 10mg tab] 10 mg PO QDAY #14 tablet 12/13/20 Unknown Rx Diclofenac Sodium 75 mg PO BID PRN #20 tablet. 01/21/21 Unknown Rx traMADoL [Ultram 50 MG tab] 50 mg PO Q6HR PRN #12 tablet 01/21/21 Unknown Rx Allergies Allergy/AdvReac Type Severity Reaction Status Date / Time cat dander Allergy Swelling Verified 01/21/21 12:02 ED Review of Systems ROS: Stated complaint: BACK PAIN Other details as noted in HPI Comment: All other systems reviewed and negative ED Past Medical Hx - Past Medical History Hx Asthma: Yes (childhood) - Surgical History Additional Surgical History: fibroid polyps removed - Social History Smoking Status: Never Smoker Substance Use Type: None (Denies illicit drug use) - Medications Home Medications: Home Medications Medication Instructions Recorded Confirmed Last Taken Type Loratadine [Claritin] 10 mg PO DAILY #30 tablet 12/10/20 Unknown Rx dexAMETHasone [Decadron] 4 mg PO Q12H #10 tablet 12/10/20 Unknown Rx Azithromycin [Zithromax Z-CHANNING] 250 mg PO DAILY #6 tab 12/13/20 Unknown Rx Cetirizine HCl [Zyrtec 10mg tab] 10 mg PO QDAY #14 tablet 12/13/20 Unknown Rx Diclofenac Sodium 75 mg PO BID PRN #20 tablet. 01/21/21 Unknown Rx traMADoL [Ultram 50 MG tab] 50 mg PO Q6HR PRN #12 tablet 01/21/21 Unknown Rx ED Physical Exam - General Limitations: No Limitations General appearance: alert, in no apparent distress - Head Head exam: Present: atraumatic, normocephalic - Eye Eye exam: Present: normal appearance - ENT ENT exam: Present: mucous membranes moist - Neck Neck exam: Present: normal inspection - Respiratory Respiratory exam: Present: normal lung sounds bilaterally. Absent: respiratory distress - Cardiovascular Cardiovascular Exam: Present: regular rate, normal rhythm. Absent: systolic murmur, diastolic murmur, rubs, gallop - GI/Abdominal GI/Abdominal exam: Present: soft, normal bowel sounds - Extremities Exam Extremities exam: Present: normal inspection - Back Exam Back exam: Present: normal inspection, full ROM, tenderness, vertebral tenderness. Absent: rash noted - Neurological Exam Neurological exam: Present: alert, oriented X3, normal gait - Psychiatric Psychiatric exam: Present: normal affect, normal mood - Skin Skin exam: Present: warm, dry, intact, normal color. Absent: rash ED Course Vital Signs 01/21/21 12:06 Temperature 97.3 F L Pulse Rate 79 Respiratory 20 Rate Blood Pressure 123/72 O2 Sat by Pulse 100 Oximetry Critical care attestation.: If time is entered above; I have spent that time in minutes in the direct care of this critically ill patient, excluding procedure time. ED Disposition Clinical Impression: Acute back pain Disposition: 01 HOME / SELF CARE / HOMELESS Is pt being admited?: No Does the pt Need Aspirin: No Condition: Stable Instructions: Acute Back Pain, Adult Additional Instructions: Please take pain medication as needed. Tramadol can make you dizzy so please do not operate heavy machinery while taking tramadol. It is very important to increase your water intake while taking medications. Follow-up with your primary care provider. Prescriptions: Diclofenac Sodium 75 mg PO BID PRN #20 tablet.dr PELLETIER Reason: Pain , Severe (7-10) traMADoL [Ultram 50 MG tab] 50 mg PO Q6HR PRN #12 tablet PRN Reason: Pain Referrals: DANUTA OLIVARES MD [Staff Physician] - 3-5 Days Forms: Work/School Release Form(ED) Time of Disposition: 12:47
== END 2021-01-21 14:52 | disposition home or self-care (01) ==
LOC: ED 12:00
DX: M54.9 Dorsalgia, unspecified (principal); J45.909 Unspecified asthma, uncomplicated; Z91.09 Other allergy status, other than to drugs and biological substances
CPT/HCPCS: 96372; 99282; J1885

== ENCOUNTER 2021-01-24 16:41 | Emergency (ER) | payer SELFPAY | END 2021-01-24 19:00 | disposition left against medical advice (07) | LOC: ED 16:41 | DX: M54.50 Low back pain, unspecified (principal); Z53.21 Procedure and treatment not carried out due to patient leaving prior to being seen by health care provider ==

== ENCOUNTER 2021-01-25 15:21 | Emergency (ER) | payer SELFPAY ==
[2021-01-25 16:35] VITALS: BP 121/66
--- NOTE | 2021-01-25 16:40 | Emergency Department Report ---
ED Back Pain/Injury HPI - General Chief Complaint: Back Pain/Injury Stated Complaint: BACK PAIN Time Seen by Provider: 01/25/21 16:04 Source: patient Limitations: No Limitations - History of Present Illness Initial Comments: Patient is a 50-year-old female presents emergency room with complaints of needing restrictions for her job. pt presented with Lower back pain that began approximately a week ago. She states that the pain radiates down her right gluteus to her right leg. She denies any fall or injury. Patient was evaluated in the emergency department and given medication and prescription for medication. She states that her pain did improve with the medication. 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 She states that she reports the emergency room wanting a letter to give her restrictions at work. She did not follow-up with a primary care doctor or learning solutions specialist. She denies any worsening of her pain. She denies any abdominal pain, fever, nausea, vomiting, diarrhea, numbness, weakness, bowel or bladder incontinence, urinary symptoms. Past medical history fibroids. Allergy to cat dander. - Related Data Previous Rx's Medication Instructions Recorded Last Taken Type Loratadine [Claritin] 10 mg PO DAILY #30 tablet 12/10/20 Unknown Rx dexAMETHasone [Decadron] 4 mg PO Q12H #10 tablet 12/10/20 Unknown Rx Azithromycin [Zithromax Z-CHANNING] 250 mg PO DAILY #6 tab 12/13/20 Unknown Rx Cetirizine HCl [Zyrtec 10mg tab] 10 mg PO QDAY #14 tablet 12/13/20 Unknown Rx Diclofenac Sodium 75 mg PO BID PRN #20 tablet. 01/21/21 Unknown Rx traMADoL [Ultram 50 MG tab] 50 mg PO Q6HR PRN #12 tablet 01/21/21 Unknown Rx Allergies Allergy/AdvReac Type Severity Reaction Status Date / Time cat dander Allergy Swelling Verified 01/25/21 16:35 ED Review of Systems ROS: Stated complaint: BACK PAIN Other details as noted in HPI Comment: All other systems reviewed and negative ED Past Medical Hx - Past Medical History Hx Asthma: Yes (childhood) - Surgical History Additional Surgical History: fibroid polyps removed - Social History Smoking Status: Never Smoker Substance Use Type: None - Medications Home Medications: Home Medications Medication Instructions Recorded Confirmed Last Taken Type Loratadine [Claritin] 10 mg PO DAILY #30 tablet 12/10/20 01/25/21 Unknown Rx dexAMETHasone [Decadron] 4 mg PO Q12H #10 tablet 12/10/20 01/25/21 Unknown Rx Azithromycin [Zithromax Z-CHANNING] 250 mg PO DAILY #6 tab 12/13/20 01/25/21 Unknown Rx Cetirizine HCl [Zyrtec 10mg tab] 10 mg PO QDAY #14 tablet 12/13/20 01/25/21 Unknown Rx Diclofenac Sodium 75 mg PO BID PRN #20 tablet.dr 01/21/21 01/25/21 Unknown Rx traMADoL [Ultram 50 MG tab] 50 mg PO Q6HR PRN #12 tablet 01/21/21 01/25/21 Unknown Rx ED Physical Exam - General Limitations: No Limitations General appearance: alert, in no apparent distress - Head Head exam: Present: atraumatic, normocephalic - Eye Eye exam: Present: normal appearance - ENT ENT exam: Present: mucous membranes moist - Neck Neck exam: Present: normal inspection, full ROM. Absent: tenderness, meningismus - Respiratory Respiratory exam: Present: normal lung sounds bilaterally. Absent: respiratory distress, wheezes, rales, rhonchi, stridor, chest wall tenderness, accessory muscle use, decreased breath sounds, prolonged expiratory - Cardiovascular Cardiovascular Exam: Present: regular rate, normal rhythm, normal heart sounds. Absent: systolic murmur, diastolic murmur, rubs, gallop - Back Exam Back exam: Present: normal inspection, full ROM, paraspinal tenderness (right sided lumbar paraspinal ttp, no midline c-spine, t-spine or l-spine ttp, no step offs, no deformities). Absent: vertebral tenderness - Neurological Exam Neurological exam: Present: alert, oriented X3, CN II-XII intact, normal gait. Absent: motor sensory deficit - Psychiatric Psychiatric exam: Present: normal affect, normal mood - Skin Skin exam: Present: warm, dry, intact ED Course Vital Signs 01/25/21 16:34 Temperature 97.6 F Pulse Rate 80 Respiratory 14 Rate Blood Pressure 121/66 Blood Pressure 121/66 [Right] O2 Sat by Pulse 99 Oximetry ED Medical Decision Making - Medical Decision Making Patient is a 50-year-old female presents emergency room with complaints of needing restrictions for her job. pt presented with Lower back pain that began approximately a week ago. She states that the pain radiates down her right glu teus to her right leg. She denies any fall or injury. Patient was evaluated in the emergency department and given medication and prescription for medication. She states that her pain did improve with the medication. 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 She states that she reports the emergency room wanting a letter to give her restrictions at work. She did not follow-up with a primary care doctor or learning solutions specialist. She denies any worsening of her pain. She denies any abdominal pain, fever, nausea, vomiting, diarrhea, numbness, weakness, bowel or bladder incontinence, urinary symptoms. Past medical history fibroids. Allergy to cat dander. Vitals are normal. On exam:right sided lumbar paraspinal ttp, no midline c-spine, t-spine or l-spine ttp, no step offs, no deformities, no focal neuro deficits, patient is ambulatory. Symptoms and examination likely appear consistent with sciatica versus lumbar radiculopathy. Patient states her medications aren't helping with her symptoms. Advised patient that we would not be able to write her restrictions for her job as this would need to come through her primary care doctor or a learning solutions specialist. advised pt Please continue to take the medications you are prescribed during your last emergency room visit. May use ice pack, heating pad, rest, and salt bath. Follow-up with a primary care doctor. Follow-up with a learning solutions specialist. Return to emergency room for any new or worsening symptoms. Critical care attestation.: If time is entered above; I have spent that time in minutes in the direct care of this critically ill patient, excluding procedure time. ED Disposition Clinical Impression: Low back pain Qualifiers: Chronicity: acute Back pain laterality: right Sciatica presence: with sciatica Sciatica laterality: sciatica of right side Qualified Code(s): M54.41 - Lumbago with sciatica, right side Disposition: 01 HOME / SELF CARE / HOMELESS Is pt being admited?: No Does the pt Need Aspirin: No Condition: Stable Instructions: Sciatica Additional Instructions: Please continue to take the medications you are prescribed during your last emergency room visit. May use ice pack, heating pad, rest, and salt bath. Follow-up with a primary care doctor. Follow-up with a learning solutions specialist. Return to emergency room for any new or worsening symptoms. Referrals: MANOHAR GONZALEZ II, MD [Staff Physician] - 3-5 Days your, primary care doctor [Other] - 3-5 Days Forms: Work/School Release Form(ED) Time of Disposition: 16:40 Print Language: ALBANIAN
== END 2021-01-25 16:54 | disposition home or self-care (01) ==
LOC: ED 15:21
DX: M54.41 Lumbago with sciatica, right side (principal); Z79.899 Other long term (current) drug therapy
CPT/HCPCS: 99282